=== PATIENT | male | born 1960 | race Caucasian/White ===

== ENCOUNTER → 2017-05-09 | Outpatient (CLI) | payer OTHER ==
[2017-05-09 11:33] LABS: LYMPH # 1.4 K/mm3 (0.7-4.5); LYMPH % 34.3 % (10-50)
[2017-05-09 11:40] LABS: HEMOGLOBIN 14.2 g/dL (14.1-18.0)
[2017-05-09 12:01] LABS: BUN 13 mg/dL (7-18)
[2017-05-09 12:02] LABS: GFR (ESTIMATED) 88 ML/MIN (>60)
== END ==
LOC: LAB 10:54
PROVIDERS: Emergency Medicine
DX: E11.9 Type 2 diabetes mellitus without complications (principal); E78.5 Hyperlipidemia, unspecified

== ENCOUNTER → 2017-05-19 | Outpatient (CLI) | payer OTHER ==
[~2017-05-19] MED LIST: ASPIRIN325 M1 PO; FLAGYL500 M1 PO; GAS RELIEF 125125 MG PO; INSULIN RE100 UNITS/ SC; LANTUS INS100 UNITS/ SC; METFORMIN500 MG PO; PRAVASTATIN 40M40 MG PO; PRILOSEC40 MG PO; PROTONIX 40MG T40 MG PO; ZOFRAN ODT4 MG PO; Zithromax500 MG PO
[2017-05-21 10:39] LABS: Creatinine, Urine 50.4 mg/dL (Not Estab.); Microalbumin, Urine <3.0 ug/mL (Not Estab.)
== END ==
LOC: LAB 18:24
PROVIDERS: Emergency Medicine
DX: E11.9 Type 2 diabetes mellitus without complications (principal)